=== PATIENT | male | born 1995 | race American Indian/Alaskan Native ===

== ENCOUNTER 2018-11-17 04:57 | Emergency (ER) | payer MEDICAID, OTHER ==
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
[2018-11-17 08:07] VITALS: BP 123/78
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
== END 2018-11-17 08:26 | disposition home or self-care (01) ==
LOC: ED 04:57
DX: S39.012A Strain of muscle, fascia and tendon of lower back, initial encounter (principal); J34.89 Other specified disorders of nose and nasal sinuses; M25.561 Pain in right knee; M41.9 Scoliosis, unspecified; Z98.890 Other specified postprocedural states; V89.2XXA Person injured in unspecified motor-vehicle accident, traffic, initial encounter; Y93.89 Activity, other specified; Y92.89 Other specified places as the place of occurrence of the external cause; Y99.8 Other external cause status
CPT/HCPCS: 70160; 72100

== ENCOUNTER 2019-01-29 18:14 | Emergency (ER) | payer OTHER ==
[2019-01-29 18:44] VITALS: BP 111/68
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
== END 2019-01-29 23:45 | disposition home or self-care (01) ==
LOC: ED 18:14
DX: S16.1XXA Strain of muscle, fascia and tendon at neck level, initial encounter (principal); S39.012A Strain of muscle, fascia and tendon of lower back, initial encounter; J32.9 Chronic sinusitis, unspecified; F12.10 Cannabis abuse, uncomplicated; Z79.2 Long term (current) use of antibiotics; Z79.899 Other long term (current) drug therapy; Z98.890 Other specified postprocedural states; V49.49XA Driver injured in collision with other motor vehicles in traffic accident, initial encounter; Y93.89 Activity, other specified; Y92.488 Other paved roadways as the place of occurrence of the external cause; Y99.8 Other external cause status
CPT/HCPCS: 72040; 72100; 72170

== ENCOUNTER 2020-05-11 12:25 | Emergency (ER) | payer OTHER ==
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
[2020-05-11 15:42] VITALS: BP 103/65
== END 2020-05-11 15:42 | disposition home or self-care (01) ==
LOC: ED 12:25
DX: M54.2 Cervicalgia (principal); F17.200 Nicotine dependence, unspecified, uncomplicated; Z98.890 Other specified postprocedural states; Z79.899 Other long term (current) drug therapy; V49.49XA Driver injured in collision with other motor vehicles in traffic accident, initial encounter; Y93.89 Activity, other specified; Y92.410 Unspecified street and highway as the place of occurrence of the external cause; Y99.8 Other external cause status
CPT/HCPCS: 99282